=== PATIENT | female | born 1960 | race Caucasian/White ===

== ENCOUNTER 2017-08-01 14:26 | Emergency (ER) | payer OTHER ==
[2017-08-01] MEDS: ALBUTEROL 0.083% (NEB) 2.5 MG/3 ML AMP HHN (17:52)
[2017-08-01] MEDS: IPRATROPIUM (NEB) 0.5 MG/2.5 ML AMP HHN (17:52)
[2017-08-01] MEDS: DEXAMETHASONE 10 MG/ML 1 ML INJ PO (18:05)
== END 2017-08-01 19:16 | disposition home or self-care (01) ==
LOC: FTE 14:26
DX: J45.901 Unspecified asthma with (acute) exacerbation (principal); R05 Cough
CPT/HCPCS: 94664; 99284-25

== ENCOUNTER 2017-08-06 18:00 | Emergency (ER) | payer OTHER | END 2017-08-06 20:01 | disposition home or self-care (01) | LOC: E/R 18:00 | DX: J20.9 Acute bronchitis, unspecified (principal); J45.909 Unspecified asthma, uncomplicated | CPT/HCPCS: 99284; Z7502 ==

== ENCOUNTER 2017-10-31 08:34 | Emergency (ER) | payer OTHER ==
[2017-10-31] MEDS: predniSONE 20 MG TAB PO (09:17)
[2017-10-31] MEDS: ALBUTEROL 0.083% (NEB) 2.5 MG/3 ML AMP HHN (09:18)
[2017-10-31] MEDS: IPRATROPIUM (NEB) 0.5 MG/2.5 ML AMP HHN (09:18)
== END 2017-10-31 10:25 | disposition home or self-care (01) ==
LOC: FTE 08:34
DX: J45.901 Unspecified asthma with (acute) exacerbation (principal)
CPT/HCPCS: 71045; 94664; 99284-25